=== PATIENT | male | born 1960 | race Caucasian/White ===

== ENCOUNTER 2021-04-02 19:31 | Emergency (ER) | payer OTHER ==
[~2021-04-02] VITALS: Ht 177.8 cm; Wt 78.8 kg
[2021-04-02 19:35] VITALS: BP 145/85
[2021-04-02] MEDS ORDERED: KETOROLAC 30 MG/1 ML IM ONE (20:30)
[2021-04-02] MEDS ORDERED: KETOROLAC 30 MG/1 ML ONE (20:52)
--- NOTE | 2021-04-02 21:24 | NUR ---
Patient given discharge instructions and they have confirmed that they understand the instructions. Patient ambulatory with steady gait. NAD, all questions answered appropriately, denies additional needs at this time. No personal belongings left in room after discharge.
== END 2021-04-02 21:25 | disposition home or self-care (01) ==
LOC: ED 20:00
DX: M70.71 Other bursitis of hip, right hip (principal); Y93.89 Activity, other specified
CPT/HCPCS: 99283; J1885